=== PATIENT | female | born 1985 | race Asian ===

== ENCOUNTER 2017-10-01 00:12 | Emergency (ER) | payer MEDICAID ==
[~2017-10-01] VITALS: Ht 170.2 cm; Wt 63.5 kg
[2017-10-01 00:42] VITALS: BP 123/82
== END 2017-10-01 02:45 | disposition left against medical advice (07) ==
LOC: ER 00:16
DX: S61.452A Open bite of left hand, initial encounter (principal); Z53.21 Procedure and treatment not carried out due to patient leaving prior to being seen by health care provider; W57.XXXA Bitten or stung by nonvenomous insect and other nonvenomous arthropods, initial encounter; Y93.89 Activity, other specified; Y92.89 Other specified places as the place of occurrence of the external cause; Y99.8 Other external cause status

== ENCOUNTER 2019-05-09 08:30 | Emergency (ER) | payer BC, MEDICAID ==
[~2019-05-09] VITALS: Ht 170.2 cm; Wt 73.9 kg
[2019-05-09 08:40] VITALS: BP 133/84
== END 2019-05-09 10:15 | disposition home or self-care (01) ==
LOC: ER 08:30
DX: O20.0 Threatened abortion (principal); Z3A.28 28 weeks gestation of pregnancy
CPT/HCPCS: 76805; 81002

== ENCOUNTER 2019-07-15 06:01 | Emergency (ER) | payer BC ==
[~2019-07-15] VITALS: Ht 170.2 cm; Wt 73.5 kg
[2019-07-15 06:09] VITALS: BP 136/79
== END 2019-07-15 07:08 | disposition left against medical advice (07) ==
LOC: ER 06:01
DX: R05 Cough (principal); R09.81 Nasal congestion